=== PATIENT | female | born 1955 | race Caucasian/White ===

== ENCOUNTER → 2020-05-04 | Outpatient (CLI) | payer OTHER ==
--- NOTE | 2020-05-04 15:40 | RAD ---
EXAM: Left knee, 2 views; lumbar spine, 2 views; right ankle, 2 views. HISTORY: Disability determination. COMPARISON: None. FINDINGS: Left knee: 2 views of the left knee are obtained. There is mild medial compartment spurring. There is no fracture, dislocation or subacute fixation. There is no joint effusion. Lumbar spine: 2 views of the lumbar spine are obtained. There is grade 1 anterolisthesis of L4 on L5 and L5 on S1, measuring 4 mm and 7 mm. There is multilevel endplate remodeling and Schmorl's node formation. There is disc space narrowing predominantly at L2-L3. There is multilevel facet arthropathy, predominantly at the lower lumbar levels. There is minimal lumbar dextrocurvature. Right ankle: 2 views of the right ankle are obtained. There is no acute fracture, dislocation or subluxation. There is tibiotalar spurring. There is a small sclerotic lesion within the distal tibial metaphysis, likely due to bone infarct or bone island. No osteochondral lesion is seen. There is a small plantar spur. There is a prominent os trigonum. There is mild talonavicular osteoarthritis. IMPRESSION: 1. No acute osseous finding. 2. Mild medial compartment osteoarthritis of the left knee. 3. Multilevel advanced degenerative change involving the lumbar spine and grade 1 anterolisthesis at the lower lumbar levels. 4. Mild right tibiotalar and talonavicular osteoarthritis and small plantar spur. Electronically signed by: Carie Mosqueda MD (05/04/2020 3:36 PM) [facility]
== END ==
LOC: RAD 14:48
PROVIDERS: ATTEND Family Medicine
DX: M17.12 Unilateral primary osteoarthritis, left knee (principal); M19.071 Primary osteoarthritis, right ankle and foot; M47.816 Spondylosis without myelopathy or radiculopathy, lumbar region; M43.16 Spondylolisthesis, lumbar region; M77.51 Other enthesopathy of right foot and ankle
CPT/HCPCS: 72100; 73560; 73600